=== PATIENT | female | born 1970 | race Caucasian/White ===

== ENCOUNTER → 2016-06-08 | Outpatient (CLI) | payer BC | LOC: FIMAGING 10:12 | PROVIDERS: ATTEND Family Medicine | DX: N60.01 Solitary cyst of right breast (principal) | CPT/HCPCS: G0204 ==

== ENCOUNTER → 2017-03-21 | Outpatient (CLI) | payer BC | LOC: FIMAGING 12:49 | PROVIDERS: ATTEND Midwife | DX: N93.9 Abnormal uterine and vaginal bleeding, unspecified (principal); D25.9 Leiomyoma of uterus, unspecified ==